=== PATIENT | female | born 1960 | race Caucasian/White ===

== ENCOUNTER 2019-03-04 11:45 | Emergency (ER) | payer OTHER ==
[2019-03-04] MEDS ORDERED: IBUPROFEN 200 MG TAB PO ONE (12:02)
--- NOTE | 2019-03-04 12:21 | EDPHY ---
H & P Stated Complaint: Pt. states [address] fell FOOSH rt shoulder pain, limited rom Time Seen by Provider: 03/04/19 12:05 HPI/ROS: Chief Complaint: Right shoulder injury HPI: 58-year-old woman was trail run this morning when she had a mechanical trip and fall. She landed on her hand and her right shoulder. Immediate onset of right shoulder pain. She has decreased range of motion secondary to pain. Did not hit her head. No loss of consciousness. No numbness or weakness. ROS: 10 systems were reviewed and were negative except those elements noted in the HPI. PMH: Denies Social History: No smoking, no alcohol, no recreational drug use Family History: non-contributory Physical Exam: Gen: Awake, Alert, No Distress HEENT: Nose: no rhinorrhea Eyes: PERRLA, EOMI Mouth: Moist mucosa Neck: Supple, no JVD Ext: no edema, patient has mild superior shoulder soft tissue tenderness at the AC joint. No deformity. Patient has mildly diminished passive range of motion but she has decrease abduction secondary to pain. 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 depression/anxiety. [id number] - Social History Smoking Status: Never smoked Constitutional: Initial Vital Signs Temperature (C) 37.3 C 03/04/19 11:54 Heart Rate 83 03/04/19 11:54 Respiratory Rate 16 03/04/19 11:54 Blood Pressure 143/83 H 03/04/19 11:54 O2 Sat (%) 94 03/04/19 11:54 O2 Delivery Mode Room Air Allergies/Adverse Reactions: cephalexin [Cephalexin] Allergy (Intermediate, Verified 03/04/19 11:52) Home Medications: Medication Instructions Recorded Danazol [Danazol 100 MG (RX)] 100 mg PO 03/20/12 Albuterol Hfa Anes Only 03/04/19 Prozac 20 MG (*) 03/04/19 Zyprexa 03/04/19 Medical Decision Making - Diagnostics Imaging Results: Imaging Impressions Shoulder X-Ray 03/04/19 12:12 Impression: No acute findings. ED Course/Re-evaluation: Shoulder x-ray negative. Symptoms consistent with soft tissue injury, likely rotator cuff injury. Will discharge with follow-up with Orthopedics. Supportive care. - Data Points Medications Given: Discontinued Medications Ibuprofen (Motrin) 400 mg PO EDNOW ONE Stop: 03/04/19 12:03 Last Admin: 03/04/19 12:08 Dose: 400 mg Departure - Departure Disposition: Home, Routine, Self-Care Clinical Impression: Shoulder sprain Condition: Good Instructions: Shoulder Sprain (ED) Additional Instructions: Apply ice for 15 min of every hour while awake. Take ibuprofen, 600 mg every 8 hr. You may alternate with acetaminophen, 1000 mg every 8 hr. Follow up with Orthopedics in 3-4 days for further evaluation. Referrals: Kelly Castillo MD [Primary Care Provider] - As per Instructions Troy Zurita MD [Medical Doctor] - As per Instructions
[2019-03-04 16:03] VITALS: BP 134/82
== END 2019-03-04 13:03 | disposition home or self-care (01) ==
LOC: CED 11:45
DX: S43.401A Unspecified sprain of right shoulder joint, initial encounter (principal); W01.0XXA Fall on same level from slipping, tripping and stumbling without subsequent striking against object, initial encounter; Y92.828 Other wilderness area as the place of occurrence of the external cause; Y93.02 Activity, running
CPT/HCPCS: 73030-PO; 99283-ER